=== PATIENT | male | born 1975 | race Caucasian/White ===

== ENCOUNTER 2020-06-01 14:19 | Inpatient (IN) | payer BC ==
[~2020-06-01] VITALS: Ht 177.8 cm; Wt 120.8 kg
[2020-06-01 14:28] VITALS: BP 90/51
[2020-06-01 15:05] LABS: ABSOLUTE NEUTROPHILS 7.4 thou/uL (1.4-8.2); HEMATOCRIT 46.8 % (42.0-52.0); HEMOGLOBIN 15.8 gm/dL (14.0-18.0); LYMPHOCYTES 12.4 % (24.0-44.0); MCH 30.9 pg (26.0-34.0); MCHC 33.8 g/dL (28.0-37.0); MCV 91.4 fL (80.0-100.0); MONOCYTES 8.5 % (1.0-8.0); PLATELET COUNT 219 thou/uL (150-400); POLYS 79.1 % (36.0-66.0); RBC 5.12 mil/uL (4.50-6.00); RDW 13.8 % (10.5-14.5); WBC 9.4 thou/uL (4.0-11.0)
[2020-06-01 15:13] LABS: CREATININE 0.9 mg/dL (0.7-1.3); POTASSIUM 3.6 mmol/L (3.5-5.1)
[2020-06-01 15:20] LABS: URINE BILIRUBIN NEGATIVE (Negative); URINE BLOOD NEGATIVE (Negative); URINE CLARITY CLEAR; URINE COLOR YELLOW; URINE GLUCOSE-RANDOM* NEGATIVE (Negative); URINE KETONES NEGATIVE (Negative); URINE LEUKOCYTES-REFLEX NEGATIVE (Negative); URINE NITRITE-REFLEX NEGATIVE (Negative); URINE PROTEIN (DIPSTICK) NEGATIVE (Negative); URINE UROBILINOGEN 0.2 E.U./dl (0.2-1.0)
--- NOTE | 2020-06-01 17:15 | EKG ---
[place] [address] [facility] [place] [address] ELECTROCARDIOGRAM REPORT Name: JAMIN LANGLEY Room #: REG NAVEEN Molina#: [id number] Admission: 06/01/20 Attend Phys: Discharge: Date of : 79 Report #: [id number] [facility] Test Date: 2020-06-01 Test Time: 15:42:38 Pat Name: JAMIN LANGLEY Department: Room: Gender: M Key Sander: JUAN : 1975 Requested By: Alyssa Cao Order Number: [id number] MD: Joel Lane Measurements Intervals [place] Rate: 67 P: -15 CO: 166 QRS: -28 QRSD: 107 T: 3 QT: 396 QTc: 418 Interpretive Statements Sinus rhythm Inferior infarct, old No previous ECG available for comparison Electronically Signed On 06-01-2020 17:15:[address] [email or web address] <ELECTRONICALLY SIGNED> By: Joel Lane MD, [facility] 06/01/[address] MD, FACC /EPI
[2020-06-01 20:22] VITALS: BP 102/71
--- NOTE | 2020-06-01 20:23 | NUR ---
HAND OFF TOOL SENT TO [facility]
--- NOTE | 2020-06-01 20:27 | NUR ---
FIRST ATTEMPT AT REPORT. NO ANSWER
[2020-06-01 20:38] VITALS: BP 121/77
--- NOTE | 2020-06-01 20:38 | NUR ---
SECOND ATTEMPT AT REPORT
--- NOTE | 2020-06-01 20:41 | NUR ---
NURSE IS IN THE MIDDLE OF A MED PASS. PATIENT BEING TRANSPORTED TO THE FLOOR
[2020-06-01 20:44] VITALS: BP 121/77
[2020-06-01 21:04] VITALS: BP 110/72
[2020-06-01] MEDS ORDERED: LISINOPRIL20 MG PO (21:53)
[2020-06-01] MEDS ORDERED: ADVAIR HFA 230M12 GM INH (21:54)
[2020-06-01] MEDS ORDERED: SPIRIVA18 MCG INH (21:55)
[2020-06-01] MEDS ORDERED: SINGULAIR 10 MG10 M1 PO (21:56)
[2020-06-02 00:10] VITALS: BP 109/57
[2020-06-02 05:41] VITALS: BP 119/76
--- NOTE | 2020-06-02 07:30 | NUR ---
Arrived from ER around 2100. Enhanced isolation dc'd by SHAMA ALCALA per protocol. Pt. has been afebrile. C/O generalized weakness and not feeling well. Denies any pain. No nausea , vomiting or diarrhea since he was given meds in ER. IV fluids infusing.Assisted to use bathroom x1 then used urinal this am. Tolerating room air well then RT put him on autotitrating BIPAP with 3L bleed in. Maintaining O2 sat in the mid to upper 90's on BIPAP.
[2020-06-02 08:38] VITALS: BP 110/65
--- NOTE | 2020-06-02 15:46 | NUR ---
INITIAL ASSESSMENT: SW reviewed chart and spoke with nursing and attending physician. Pt was admitted due to nausea/vomiting. [place] SW met with pt at bedside. Introduced role of SW. Pt is alert/orientated x 4. Pt reports he lives at home in [place] and is normally independent with ADLs. No use of DME. Pt states that his plan is to stay with friends in or [place] for a few days prior to continuing his trip to [place]. Pt uses [facility] pharmacy. Possible weekend discharge. Pt does not anticipate having any discharge needs. SW is available to assist should needs arise.
[2020-06-02 16:00] VITALS: BP 125/82
[2020-06-02 19:29] VITALS: BP 103/58
--- NOTE | 2020-06-02 21:55 | NUR ---
PT RESTING IN BED IN THE DARK. PT REPORTED N/V AFTER COUGHING EPISODE EARLIER IN THE DAY. PT REPORTED CONTINUED NAUSEA AND PRN PROVIDED. IVF INTACT. BLUNTED AFFECT, GOOD EYE CONTACT.
[2020-06-03 03:58] VITALS: BP 100/65
[2020-06-03 08:40] VITALS: BP 136/89
[2020-06-03 11:31] VITALS: BP 113/77
--- NOTE | 2020-06-03 13:36 | NUR ---
DECREASED NAUSEA AND VOMITING TODAY, SEEN BY GI. STARTED ON PROTONIX AND GUAIFENESIN. VSS.
[2020-06-03 14:06] LABS: HEMATOCRIT 45.9 % (42.0-52.0); HEMOGLOBIN 15.5 gm/dL (14.0-18.0); MCH 31.3 pg (26.0-34.0); MCHC 33.8 g/dL (28.0-37.0); MCV 92.5 fL (80.0-100.0); RBC 4.96 mil/uL (4.50-6.00); RDW 13.7 % (10.5-14.5); WBC 6.6 thou/uL (4.0-11.0)
[2020-06-03 14:15] LABS: ALBUMIN 3.6 g/dL (3.4-5.0); DIRECT BILIRUBIN 0.2 mg/dL (<0.1-0.2); TOTAL BILIRUBIN 0.9 mg/dL (0.2-1.0); TOTAL PROTEIN 6.7 g/dL (6.4-8.2)
[2020-06-03 15:36] VITALS: BP 110/74
[2020-06-03 21:08] LABS: URINE BILIRUBIN NEGATIVE (Negative); URINE BLOOD NEGATIVE (Negative); URINE CLARITY CLEAR; URINE COLOR YELLOW; URINE GLUCOSE-RANDOM* NEGATIVE (Negative); URINE KETONES NEGATIVE (Negative); URINE LEUKOCYTES NEGATIVE (Negative); URINE NITRITE NEGATIVE (Negative); URINE PROTEIN (DIPSTICK) NEGATIVE (Negative); URINE UROBILINOGEN 0.2 E.U./dl (0.2-1.0)
[2020-06-03 21:20] VITALS: BP 110/75
[2020-06-04 03:59] VITALS: BP 108/73
--- NOTE | 2020-06-04 07:17 | NUR ---
PT REPORTED LAST NIGHT THAT HE HAS NOT HAD A BM IN THREE DAYS. ORDERS RECEIVED FROM [employer]ATIONS [employer]OCIATE FOR MOM AND MIRALAX. MEDS GIVEN PER ORDERS. PT OFFERED PRUNE JUICES. PT DID STATE THAT HE HAS PASSED GAS INTERMITTENTLY OVER THE PAST FEW DAYS. C/O PAIN, LOWER ABD, LATERALLY TO THE LEFT AND BASICALLY FROM THE BOTTOM OF THE SCROTUM THROUGH TO THE RECTUM. PT INITIALLY REPORTING 7/10 PAIN AND THEN 5/10 PAIN THIS MORNING. HE STATED SITTING WORSENS THE DISCOMFORT. READ GI PHYSICIAN NOTE.
[2020-06-04 08:12] VITALS: BP 116/81
--- NOTE | 2020-06-04 10:21 | HC ---
[facility] [address] [place] [address] CONSULTATION Name: JAMIN LANGLEY Room #: 358-P ADM IN M.R.#: [id number] Admission: 06/01/20 Attend Phys: Felix Marsh MD Discharge: Date of : 79 Report #: [id number] THIS REPORT FOR: cc: FAM - No family physician/PCP FAM - No family physician/PCP Andrea Galindo MD ~ DATE OF SERVICE: 06/03/2020 HISTORY OF PRESENT ILLNESS: The patient is a 44-year-old male who was actually in the process of driving from [place] to [place] for a job when he began having significant nausea and vomiting on Friday, stayed the night in [place] in a hotel then went to urgent care. COVID testing was negative, was also complaining of a cough as well as chills. He is unsure if he was having fevers. He denies any blood in his stools. Reportedly, had a colonoscopy several years ago for blood in the stools that was negative. He does report some mild crampy abdominal pain, but not severe. He was admitted on the . Labs were basically normal including white blood cell count. He has been afebrile since that time. He did have an episode of vomiting and nausea this morning. He has been on clear liquids since admission. Chest x-ray on admission was normal. He is on albuterol, also on PPI therapy and Zofran currently. He does have a history of obstructive sleep apnea, uses a CPAP at night apparently. He denied any dysphagia or odynophagia. PAST MEDICAL HISTORY: Obstructive sleep apnea, hypertension, history of asthma. MEDICATIONS ON ADMISSION: Lisinopril, Advair, Spiriva, Singulair. REVIEW OF SYSTEMS: As per HPI. SOCIAL HISTORY: Denies any tobacco use. He does consume alcohol approximately 10 units per week. FAMILY HISTORY: Negative for colon cancer. PHYSICAL EXAMINATION: VITAL SIGNS: Temperature is 36.8, blood pressure 113/77, pulse 67, respiratory rate is 18. GENERAL: He is alert and oriented x3, in no acute distress. HEENT: Sclerae nonicteric. Oropharynx clear. NECK: Supple, without lymphadenopathy. CARDIOVASCULAR: Regular rate and rhythm. CHEST: Clear to auscultation bilaterally. ABDOMEN: Soft, obese, mildly tender to palpation, nondistended, normoactive bowel sounds. EXTREMITIES: No cyanosis, clubbing or edema. [facility] [address] [place] [address] CONSULTATION Name: SHIVAMMARION Room #: 358-P ADM IN M.R.#: [id number] Admission: 06/01/20 Attend Phys: Felix Marsh MD Discharge: Date of : 79 Report #: [id number] LABORATORY DATA: WBC 9.4, hemoglobin 15.8, platelet count is 219. Sodium 135, potassium 3.6, chloride 101, bicarbonate 26, BUN 12, creatinine is 0.9, glucose 100, calcium 9.0, lipase 110. D-dimer was 0.37. UA was normal and COVID test was negative. ASSESSMENT AND PLAN: Nausea, vomiting, diarrhea, suspect a viral gastroenteritis. The patient with minimal abdominal pain. Normal white count, afebrile. Agree with continued supportive care of IV fluids, antinausea medications and PPI therapy. The patient did have an episode of vomiting this morning; therefore, we will continue clear liquids this morning. Consider advancing diet later this afternoon if feeling better. Hopefully, home in the near future. If he has continued symptoms, may need to consider further imaging such as a CT scan. Thank you for allowing me to participate in his care. <ELECTRONICALLY SIGNED> By: Andrea Galindo MD 06/04/20 1021 1223 1306 Andrea Galindo MD /nt
[2020-06-04 12:26] VITALS: BP 102/63
[2020-06-04 15:07] VITALS: BP 107/67
[2020-06-04 19:32] VITALS: BP 118/68
[2020-06-05 03:55] VITALS: BP 119/81
--- NOTE | 2020-06-05 05:04 | NUR ---
C/O mild headache and mild nausea at HS. Able to keep down what he ate for dinner and stated that's the best meal he's had in the last four days since he's been sick. Tylenol given for headache and zofran for nausea with good relief. No bm this shift , passing gas. Last bm he had he stated was on his admission day where he had episodes of diarrhea. He just started eating regular food yesterday for dinner. He slept some , BIPAP on with 2L O2 bleed in. Up ad shikha in room with steady gait. Verbalized feeling better and not weak anymore just like when he first came in. Making progress towards care plan goals.
[2020-06-05 07:37] VITALS: BP 118/81
[2020-06-05 09:29] LABS: URINE BILIRUBIN NEGATIVE (Negative); URINE BLOOD NEGATIVE (Negative); URINE CLARITY CLEAR; URINE COLOR YELLOW; URINE GLUCOSE-RANDOM* NEGATIVE (Negative); URINE KETONES NEGATIVE (Negative); URINE LEUKOCYTES-REFLEX NEGATIVE (Negative); URINE NITRITE-REFLEX NEGATIVE (Negative); URINE PROTEIN (DIPSTICK) NEGATIVE (Negative); URINE SPECIFIC GRAVITY 1.015 (1.005-1.035)
[2020-06-05 11:17] VITALS: BP 120/71
[2020-06-05 15:23] VITALS: BP 110/72
--- NOTE | 2020-06-05 16:24 | NUR ---
SW reviewed chart and spoke with nursing and attending physician. Pt to have EGD tomorrow per EGD. Pt's diet is being advanced. Pt is on O2. Plan is for pt to discharge home when medically stable. SW is following to assist as needed with discharge planning.
[2020-06-05 20:34] VITALS: BP 113/75
[2020-06-06 04:59] VITALS: BP 98/58
--- NOTE | 2020-06-06 06:39 | NUR ---
Pt. c/o nausea and headache at beginning of shift. Tylenol and zofran given with good relief. Kept on clear liquids then NPO since AR for EGD today. Consent signed for procedure. Slept fair with BIPAP and 2L/bleed in. Up ad shikha in room with steady gait. Voided per bathroom then uses urinal at times. Requested nausea med again this am when he woke up.
[2020-06-06 07:39] VITALS: BP 111/72
[2020-06-06 11:11] VITALS: BP 109/74
--- NOTE | 2020-06-06 14:04 | NUR ---
SW reviewed chart and spoke with nursing and attending physician. Pt is currently off the unit having an EGD per GI. Pt is requiring 2L of O2. Plan is for pt to discharge home when medically stable. SW is following to assist as needed with discharge planning.
[2020-06-06 15:44] VITALS: BP 120/85
--- NOTE | 2020-06-06 17:15 | NUR ---
ASUMED PATIENT CARE AT 0700. PATIENT HAD EGD IN THE AFTERNOON, TOLERATED WELL, NO NAUSEA. DEBIES PAIN, SLOWLY TOWARDS POC GOALS,
[2020-06-06 20:00] VITALS: BP 117/72
[2020-06-07 03:43] VITALS: BP 108/74
--- NOTE | 2020-06-07 06:28 | NUR ---
Pt. c/o nausea,zofran x1 given with some relief. O2 at 2L/NC at beginning of shift then has been in RA with O2 sat in the mid 90's. He slept without BIPAP on last night stating it hurts his lungs. Up ad shikha in room , voiding per bathroom and uses urinal at times. Making progress towards care plan goals.
[2020-06-07] MEDS ORDERED: PROTONIX 20 MG20 M1 PO (08:53)
[2020-06-07] MEDS ORDERED: ZOFRAN ODT4 MG PO (08:53)
[2020-06-07 08:58] VITALS: BP 108/74
[2020-06-07 11:11] VITALS: BP 101/68
--- NOTE | 2020-06-08 16:06 | PATH ---
[facility] [address] [address] PATHOLOGY RPT PROCEDURE Name: JAMIN LANGLEY Room #: 358-P DIS IN M.R.#: [id number] Admission: 06/01/20 Date of : 79 Discharge: 06/07/20 Report #: [id number] Path Case #: [id number] [facility] Accession Number: [id number] . 01 Material submitted: . PART A: small bowel - BIOPSY OF SMALL BOWEL PART B: gastrointestinal site - RANDOM GASTRIC BIOPSY . 01 Clinical history: . EGD NAUSEA A: R/O INFECTIOUS ENTERITIS B: R/O H PYLORI VOMITING, PUI, HYPOXIA, DEHYDRATION . 02 Diagnosis: A. Small bowel mucosa, small bowel, endoscopic biopsy: - Mild acute and chronic inflammation associated with focal fundic-type metaplasia, compatible with peptic duodenitis. - Negative for villous blunting or increase in intraepithelial lymphocytes. . B. Gastric mucosa, random gastric, endoscopic biopsy: - Mild chronic gastritis with features of reactive gastropathy. - Negative for intestinal metaplasia or atrophy. - Negative for Helicobacter pylori (properly controlled immunohistochemical stain performed). (IUV:prachi; 06/08/2020) QMS 06/08/2020 1030 Local . 02 Electronically signed: . Jessica Josue MD, Pathologist NPI- [id number] . 01 Gross description: . A. The specimen is received in formalin, labeled "Jamin Orantesberthapooltucker, biopsy of small bowel, R/O infectious enteritis". Received are four segments of pale brown tissue ranging in size from 0.2-0.4 cm in maximum dimensions. The specimen is submitted entirely in cassette A1. . B. The specimen is received in formalin, labeled "Jamin Orantesberthakeon, random gastric biopsy, R/O H. pylori". Received are multiple segments of pale brown tissue ranging in size from 0.2-0.7 cm in maximum dimensions. The specimen is submitted entirely in cassette B1. (CAA; 06/07/2020) QAC/QAC 06/07/2020 1340 Local . 02 [place] [address] PATHOLOGY RPT PROCEDURE Name: ROCK SHIVAMY Room #: 358-P DIS IN M.R.#: [id number] Admission: 06/01/20 Date of : 79 Discharge: 06/07/20 Report #: [id number] Path Case #: [id number] Pathologist provided ICD-10: K52.9, K29.50 . 02 CPT . 071330, [id number], [id number] Specimen Comment: A courtesy copy of this report has been sent to [phone], [phone] Specimen Comment: [id number] Specimen Comment: Report sent to DR DYE / DR DAWSON Performed at: [address], [place] [id number] MD Daren Roblero MD Phone: [phone] Performed at: [address] [id number] MD Jessica Josue MD Phone: [phone]
== END 2020-06-07 18:30 | disposition home or self-care (01) | DRG 392 ==
LOC: ER 14:19 → 3W 19:46 → EROBS 19:46 → 3W 20:42
PROVIDERS: Emergency Medicine; Specialist; ADMIT Hospitalist; ATTEND Hospitalist
PROC: 5A09457 Assistance with Respiratory Ventilation, 24-96 Consecutive Hours, Continuous Positive Airway Pressure (ICD-10-PCS; principal; 2020-06-03)
PROC: 0DB68ZX Excision of Stomach, Via Natural or Artificial Opening Endoscopic, Diagnostic (ICD-10-PCS; 2020-06-06)
PROC: 0DB98ZX Excision of Duodenum, Via Natural or Artificial Opening Endoscopic, Diagnostic (ICD-10-PCS; 2020-06-06)
PROC: 5A09357 Assistance with Respiratory Ventilation, Less than 24 Consecutive Hours, Continuous Positive Airway Pressure (ICD-10-PCS; 2020-06-06)
DX: K29.80 Duodenitis without bleeding (principal); E86.0 Dehydration; G47.33 Obstructive sleep apnea (adult) (pediatric); J45.909 Unspecified asthma, uncomplicated; F12.90 Cannabis use, unspecified, uncomplicated; I95.9 Hypotension, unspecified; I10 Essential (primary) hypertension; K21.9 Gastro-esophageal reflux disease without esophagitis; E66.9 Obesity, unspecified; Z68.38 Body mass index [BMI] 38.0-38.9, adult; Z79.899 Other long term (current) drug therapy
CPT/HCPCS: 10879; 62110; 62900; 70005